=== PATIENT | male | born 1935 | race Caucasian/White ===

== ENCOUNTER 2018-02-14 14:57 | Inpatient (IN) | payer OTHER ==
[~2018-02-14] VITALS: Ht 165.1 cm; Wt 68.3 kg
[2018-02-14 15:13] VITALS: Ht 165.1 cm; Wt 68.3 kg
[2018-02-14] MEDS ORDERED: METFORMIN HCL850 MG PO ×2 (15:51→20:02)
[2018-02-14] MEDS ORDERED: OYSTER SHELL C1 EAC1 PO (15:51)
[2018-02-14] MEDS ORDERED: METOPROLOL SUC100 M2 PO ×2 (15:52→15:54)
[2018-02-14] MEDS ORDERED: NOR10 PO (15:52)
[2018-02-14] MEDS ORDERED: AMARYL4 MG PO (15:53)
[2018-02-14] MEDS ORDERED: TERAZOSIN HCL2 MG PO (15:53)
[2018-02-14] MEDS ORDERED: ASPIR 8181 MG PO (15:53)
[2018-02-14] MEDS ORDERED: SIMVASTATIN20 M1 PO (15:54)
[2018-02-14] MEDS ORDERED: MASON NATURAL1000 IU PO (15:54)
[2018-02-14] MEDS ORDERED: LOSARTAN POTASS50 M1 PO (15:55)
[2018-02-14 17:26] LABS: BASOPHIL % 0.7 % (0-2); PLATELET COUNT 196 x10^3mcL (130-400)
[2018-02-14 17:34] LABS: CALCIUM 8.7 mg/dL (8.5-10.1); CARBON DIOXIDE 21.6 mmol/L (21-32); CHLORIDE SERUM 104 mmol/L (98-107); GLUCOSE SERUM 230 mg/dL (74-106); POTASSIUM SERUM 3.2 mmol/L (3.5-5.1); SODIUM SERUM 140 mmol/L (136-145)
[2018-02-14 17:43] LABS: RED CELL DISTRIBUTION WIDTH 14.7 % (11.5-14.5)
[2018-02-14 17:50] LABS: ALBUMIN 3.6 g/dL (3.4-5.0); ALKALINE PHOSPHATASE 104 U/L (46-116); ALT/SGPT 38 U/L (16-63); AST/SGOT 49 U/L (15-37); BILIRUBIN TOTAL 0.54 mg/dL (0.20-1.00); FREE T4 1.01 ng/dL (0.76-1.46); LIPASE 238 IU/L (73-393); TOTAL PROTEIN, SERUM 7.6 g/dL (6.4-8.2)
[2018-02-14 20:11] LABS: UA SPECIFIC GRAVITY 1.015 (1.005-1.035); microscopic required? YES; urine erythrocyte 1+ (NEGATIVE)
[2018-02-14 20:22] LABS: AMPHETAMINE QUAL UR NONE DETECTED (See below)
[2018-02-14 21:21] VITALS: BP 168/82
[2018-02-15] VITALS (8 sets, daily range): BP systolic 127–173; BP diastolic 68–84
[2018-02-15 06:49] LABS: CALCIUM 8.2 mg/dL (8.5-10.1); CARBON DIOXIDE 24.8 mmol/L (21-32); CHLORIDE SERUM 106 mmol/L (98-107); CREATININE SERUM 0.8 mg/dL (0.7-1.3); GLUCOSE SERUM 196 mg/dL (74-106); POTASSIUM SERUM 4.4 mmol/L (3.5-5.1); SODIUM SERUM 141 mmol/L (136-145)
[2018-02-15 07:26] LABS: BASOPHIL % 0.5 % (0-2); PLATELET COUNT 208 x10^3mcL (130-400)
[2018-02-15 07:27] LABS: RED CELL DISTRIBUTION WIDTH 15.1 % (11.5-14.5)
[2018-02-16 05:55] VITALS: BP 157/76
[2018-02-16] MEDS ORDERED: CATAPRES0.1 MG PO (09:17)
[2018-02-16] MEDS ORDERED: CEPHALEXIN500 M1 PO (09:17)
[2018-02-16 10:50] VITALS: BP 175/79
[2018-02-16 12:58] VITALS: BP 175/79
[2018-02-16 13:51] VITALS: BP 135/66
== END 2018-02-16 13:53 | disposition home or self-care (01) | DRG 896 ==
LOC: ED 14:57 → EDBEDREQ 19:36 → EDBD 19:36 → DU 19:36
PROVIDERS: Emergency Medicine; ADMIT Internal Medicine Pulmonary Disease
DX: F10.129 Alcohol abuse with intoxication, unspecified (principal); G93.41 Metabolic encephalopathy; N39.0 Urinary tract infection, site not specified; S30.810A Abrasion of lower back and pelvis, initial encounter; E11.65 Type 2 diabetes mellitus with hyperglycemia; I10 Essential (primary) hypertension; Y90.0 Blood alcohol level of less than 20 mg/100 ml; E87.6 Hypokalemia; W18.30XA Fall on same level, unspecified, initial encounter; Y93.89 Activity, other specified; Y92.89 Other specified places as the place of occurrence of the external cause
CPT/HCPCS: 82962; 83880; 84439; 87804; 90714; 97110-GP; 97116-GP; 97530-GP; G0480; J0696; J1815; J3411; J3475; J3490; J7040; Q0092